=== PATIENT | female | born 1955 | race Caucasian/White ===

== ENCOUNTER 2023-09-24 11:16 | Outpatient (OUT) | payer MEDICARE, SELFPAY ==
--- NOTE | 2023-09-24 11:43 | ECG_ITS ---
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
--- NOTE | 2023-09-24 12:06 | XR_ITS ---
The [address] [address] Patient Name: ANTON HODGE MRN: [id number] date: 1955 Sex: F Assigned Patient Location: LAB Current Patient Location: LAB Accession/Order Number: [id number] Exam Date: 09/24/2023 12:11 Report Date: 09/24/2023 12:25 At the request of: RENNY TRIANA Procedure: XR chest 2V EXAM: XR chest 2V HISTORY: Cough R05.9, Malaise R53.81 COMPARISON: 12/31/2021 TECHNIQUE: Upright PA and lateral chest x-ray FINDINGS: A small amount of atelectasis or infiltrate is seen at the right lung base medially. No acute infiltrate, effusion or pneumothorax is otherwise identified. The heart is not enlarged and the vasculature is not distended. The osseous structures are grossly intact. XR/XR chest 2V IMPRESSION: A small amount of atelectasis or infiltrate is seen at the right lung base medially. The overall appearance of the chest has otherwise not changed significantly. There is no other evidence of a focal infiltrate or cardiac decompensation. Electronically authenticated by: ISHMAEL BLEDSOE Date: 09/24/2023 12:25
[2023-09-24 12:56] LABS: Microalbumin Urine Random <1.3 mg/dL (<=30.0)
[2023-09-24 13:04] LABS: Basophils Percent Auto 0.4 % (0.2-2.0); Eosinophils Absolute Auto 0.2 10^3/uL (0.0-0.7); Eosinophils Percent Auto 1.9 % (0.9-7.0); Hematocrit 48.1 % (36.0-48.0); Hemoglobin 15.6 g/dL (12.0-16.0); Immature Granulocytes Abs Auto 0.02 10^3/uL (0.00-0.03); Immature Granulocytes Pct Auto 0.3 % (0.0-0.5); Lymphocytes Absolute Auto 1.8 10^3/uL (1.2-3.8); Lymphocytes Percent Auto 21.9 % (20.5-60.0); Mean Corpuscular HGB Conc 32.4 g/dL (29.9-35.2); Mean Corpuscular Hemoglobin 28.9 pg (26.7-34.0); Mean Corpuscular Volume 89.1 fL (81.0-99.0); Mean Platelet Volume 10.7 fL (9.5-13.5); Monocytes Absolute Auto 0.6 10^3/uL (0.3-0.8); Monocytes Percent Auto 6.9 % (1.7-12.0); Neutrophils Absolute Auto 5.5 10^3/uL (1.4-6.5); Neutrophils Percent Auto 68.6 % (43.0-75.0); Platelet Count 232 10^3/uL (150-450); Red Cell Distribution Width 12.5 % (11.0-15.0)
[2023-09-24 13:05] LABS: Bilirubin Urine NEGATIVE (NEGATIVE); Blood Urine TRACE-I (NEGATIVE); Clarity Urine CLEAR (CLEAR); Color Urine LT. YELLOW (YELLOW); Glucose Urine UA NEGATIVE (NEGATIVE); Ketones Urine NEGATIVE (NEGATIVE); Leukocyte Esterase Urine MODERATE (NEGATIVE); Nitrite Urine NEGATIVE (NEGATIVE); Protein Urine NEGATIVE (NEG/TRACE); Specific Gravity Urine <=1.005 (1.005-1.025); pH Urine 6.5 (5.0-9.0)
[2023-09-24 13:49] LABS: Alanine Aminotransferase 34 U/L (14-59); Albumin Globulin Ratio 0.8; Albumin Level 3.3 g/dL (3.4-5.0); Alkaline Phosphatase 104 U/L (46-116); Anion Gap 10.8; Aspartate Amino Transferase 20 U/L (15-37); BUN Creatinine Ratio 16.8; Bilirubin Total 0.6 mg/dL (0.2-1.0); Carbon Dioxide 28.4 mmol/L (21.0-32.0); Chloride 104 mmol/L (98-107); Estimated GFR (African America >60 (>=60); Estimated GFR (Non-African Ame 59 (>=60); Glucose 114 mg/dL (74-106); Potassium 4.2 mmol/L (3.5-5.1); Sodium 139 mmol/L (136-145); Thyroid Stimulating Hormone 4.781 uIU/mL (0.358-3.740); Total Protein 7.3 g/dL (6.4-8.2)
== END 2023-09-24 11:17 | disposition home or self-care (01) ==
LOC: LAB 11:22
PROVIDERS: PCP Family Medicine; Visit Provider Family Medicine
DX: R53.81 Other malaise (principal); R53.83 Other fatigue; I10 Essential (primary) hypertension; R05.9 Cough, unspecified
CPT/HCPCS: 36415; 71046; 80053; 81003; 82043; 84443; 85025; 93005

== ENCOUNTER 2024-03-19 13:13 | Outpatient (RCR) | payer MEDICARE, SELFPAY | END 2024-05-19 16:40 | disposition home or self-care (01) | LOC: PT 13:13 | PROVIDERS: PCP Family Medicine; Visit Provider Family Medicine | DX: R53.1 Weakness (principal); R10.32 Left lower quadrant pain; M79.622 Pain in left upper arm; M25.552 Pain in left hip | CPT/HCPCS: 97010; 97014; 97035; 97110; 97140; 97161; G0283 ==

== ENCOUNTER 2024-05-03 14:33 | Outpatient (OUT) | payer MEDICARE, SELFPAY ==
--- NOTE | 2024-05-03 14:44 | MR_ITS ---
[address] [address] Patient Name: ANTON HODGE MRN: [id number] date: 1955 Sex: F Assigned Patient Location: MRI Current Patient Location: Accession/Order Number: [id number] Exam Date: 05/03/2024 14:50 Report Date: 05/04/2024 09:42 At the request of: RENNY TRIANA Procedure: MR shoulder LT wo con EXAM: MR shoulder LT wo con REASON FOR EXAM: Shoulder pain. TECHNIQUE: Multiplanar, multisequence imaging of the left shoulder was performed without contrast COMPARISON: No recent relevant imaging. FINDINGS: The AC joint is congruent with joint space narrowing, capsular hypertrophy and subchondral edema. Inferior marginal osteophytes moderately narrow the supraspinatus outlet. Small amount of fluid is present in the subacromial subdeltoid bursa. Superimposed on tendinosis, there is intermediate to high-grade partial-thickness bursal sided tear of the central cuff spanning 1.7 cm in AP dimension. A definite full-thickness tear is not evident. The teres minor tendon is intact. The subscapularis tendon is mildly thickened with intermediate signal consistent with tendinosis. No tear. The extracapsular biceps tendon is within the bicipital groove. Intracapsular biceps tendon is thickened with intermediate signal consistent with tendinosis. A definite tear is not evident. The rotator cuff musculature demonstrates symmetric bulk and signal. The humerus is centered on the glenoid. Low to intermediate grade chondrosis of the glenohumeral cartilage. Probable superior labral degeneration. Small joint effusion. The bone marrow signal is without fracture. The quadrilateral space is patent. No axillary lymphadenopathy. MR/MR shoulder LT wo con IMPRESSION: 1. Rotator cuff tendinosis with intermediate to high-grade bursal sided tear of the central cuff. A definite full-thickness tear is not evident. 2. Biceps tendinosis without tear. 3. Moderate AC joint osteoarthritis. 4. [id number] glenohumeral osteoarthritis with superior labral degeneration and joint effusion Electronically authenticated by: MITESH NAVARRO Date: 05/04/2024 09:42
== END 2024-05-03 14:34 | disposition home or self-care (01) ==
LOC: MRI 14:37
PROVIDERS: PCP Family Medicine; Visit Provider Family Medicine
DX: M79.602 Pain in left arm (principal); M75.112 Incomplete rotator cuff tear or rupture of left shoulder, not specified as traumatic; M19.012 Primary osteoarthritis, left shoulder
CPT/HCPCS: 73221